=== PATIENT | female | born 1940 | race Caucasian/White ===

== ENCOUNTER 2016-10-02 16:07 | Day surgery (SDCO) | payer MEDICARE, OTHER ==
[2016-10-02 16:51] LABS: BASOPHIL 0.6 % (0-2); EOSINOPHIL 2.7 % (0-7); HCT 38.3 % (37.0-47.0); HGB 13.2 g/dl (12.5-16.0); LYMPHOCYTE 39.1 % (15-48); MCH 31.5 pg (25.0-31.0); MCHC 34.5 g/dL (32.0-36.0); MCV 91.4 fL (78.0-100.0); MPV 10.2 fL (6.0-9.5); NEUTROPHIL 49.6 % (41-80); PLT 304 K/uL (150-400); RBC 4.19 M/uL (4.20-5.40); RDW 12.7 % (11.5-14.0); WBC 6.8 K/uL (4.0-10.5)
[2016-10-02 17:03] LABS: PROTHROMBIN TIME 12.8 SECONDS (11.7-14.0)
[2016-10-02 17:04] LABS: PTT 28.1 SECONDS (23.2-31.4)
[2016-10-02 17:10] LABS: ALBUMIN 4.1 g/dL (3.4-4.8); BILIRUBIN - TOTAL 0.4 mg/dL (0.1-1.0); CREATININE 0.6 mg/dL (0.5-1.0); GLOBULIN (CALCULATION) 2.3 g/dL (2.2-4.2); TOTAL PROTEIN 6.4 g/dL (6.4-8.3)
[2016-10-02 17:12] LABS: CKMB 1.63 ng/mL (0.97-4.94); TROPONIN T < 0.010 ng/mL
[2016-10-02 22:59] LABS: CKMB 1.67 ng/mL (0.97-4.94); TROPONIN T < 0.010 ng/mL
[2016-10-03 05:04] LABS: BASOPHIL 0.4 % (0-2); EOSINOPHIL 2.5 % (0-7); HCT 38.7 % (37.0-47.0); HGB 13.1 g/dl (12.5-16.0); LYMPHOCYTE 39.9 % (15-48); MCHC 33.9 g/dL (32.0-36.0); MCV 91.5 fL (78.0-100.0); MONOCYTE 9.2 % (0-12); MPV 10.4 fL (6.0-9.5); PLT 285 K/uL (150-400); RBC 4.23 M/uL (4.20-5.40); RDW 12.7 % (11.5-14.0); WBC 6.8 K/uL (4.0-10.5)
[2016-10-03 05:25] LABS: CKMB 1.45 ng/mL (0.97-4.94); TROPONIN T < 0.010 ng/mL
[2016-10-03 05:27] LABS: CREATININE 0.6 mg/dL (0.5-1.0); POTASSIUM 3.2 mmol/L (3.5-5.1)
[2016-10-04 05:18] LABS: BASOPHIL 0.3 % (0-2); EOSINOPHIL 3.1 % (0-7); HCT 38.7 % (37.0-47.0); HGB 13.2 g/dl (12.5-16.0); MCH 31.3 pg (25.0-31.0); MCHC 34.1 g/dL (32.0-36.0); MCV 91.7 fL (78.0-100.0); MONOCYTE 9.1 % (0-12); MPV 10.4 fL (6.0-9.5); NEUTROPHIL 42.5 % (41-80); PLT 291 K/uL (150-400); RBC 4.22 M/uL (4.20-5.40); RDW 12.7 % (11.5-14.0); WBC 6.1 K/uL (4.0-10.5)
[2016-10-04 05:38] LABS: CREATININE 0.8 mg/dL (0.5-1.0); POTASSIUM 3.5 mmol/L (3.5-5.1)
[2016-10-04] MEDS ORDERED: TENORMIN50 M1 PO (14:46)
[2016-10-04] MEDS ORDERED: HCTZ12.5 MG PO (14:46)
[2016-10-04] MEDS ORDERED: COZAAR50 MG PO (14:46)
[2016-10-04] MEDS ORDERED: PAXIL10 MG PO (14:46)
[2016-10-04] MEDS ORDERED: COQ1050 MG PO (14:47)
[2016-10-04] MEDS ORDERED: PRAVACHOL20 MG PO (14:47)
[2016-10-04] MEDS ORDERED: SYNTHROID50 MCG PO (14:48)
[2016-10-04] MEDS ORDERED: ZANTAC150 MG PO (14:48)
== END 2016-10-04 11:00 | disposition home or self-care (01) ==
LOC: FER 16:07 → FTCU 17:40
PROVIDERS: Emergency Medicine; ADMIT Internal Medicine
DX: R07.2 Precordial pain (principal); I10 Essential (primary) hypertension; E78.5 Hyperlipidemia, unspecified; E03.9 Hypothyroidism, unspecified; Z90.710 Acquired absence of both cervix and uterus; Z90.49 Acquired absence of other specified parts of digestive tract; Z98.890 Other specified postprocedural states; Z88.0 Allergy status to penicillin; Z88.8 Allergy status to other drugs, medicaments and biological substances; Z87.891 Personal history of nicotine dependence; Z82.49 Family history of ischemic heart disease and other diseases of the circulatory system; Z83.49 Family history of other endocrine, nutritional and metabolic diseases; Z96.49 Presence of other endocrine implants; Z90.721 Acquired absence of ovaries, unilateral; Z79.899 Other long term (current) drug therapy
CPT/HCPCS: 36415; 71010; 73120; 76705; 80048; 80053; 80061; 82550; 82553; 84484; 85025; 85610; 85730; 93005; 94010; G0378; J1885

== ENCOUNTER 2020-10-22 14:29 | Day surgery (SDCO) | payer MEDICARE, OTHER ==
[~2020-10-22 14:29] MED LIST: ATIVAN0.5 MG PO; COQ1050 MG PO; COZAAR50 MG PO; CYMBALTA20 MG PO; HCTZ12.5 MG PO; LEVAQUIN500 MG PO; LEXAPRO 10MG TA10 MG PO; MACROBID100 MG PO; MAG-OXIDE 400M400 MG PO; MEDROL 4MG DOSEP4 MG PO; MICRO-K10 MEQ PO; PAXIL10 MG PO; PEPCID AC20 MG PO; PRAVACHOL20 MG PO; SYNTHROID50 MCG PO; TENORMIN50 M1 PO; ZANTAC150 MG PO; ZPAK PO
[2020-10-22 14:50] LABS: BASOPHIL 0.5 % (0-2); EOSINOPHIL 1.3 % (0-7); HGB 12.6 g/dl (12.5-16.0); LYMPHOCYTE 31.4 % (15-48); MCH 31.9 pg (25.0-31.0); MCHC 33.2 g/dL (32.0-36.0); MCV 96.2 fL (78.0-100.0); MONOCYTE 9.1 % (0-12); MPV 10.2 fL (6.0-9.5); NEUTROPHIL 55.4 % (41-80); NRBC 0; PLT 306 K/uL (150-400); RBC 3.95 M/uL (4.20-5.40); RDW 13.1 % (11.5-14.0); WBC 9.1 K/uL (4.0-10.5)
[2020-10-22 14:55] LABS: INR 1.01 (0.9-1.2); PROTHROMBIN TIME 12.6 SECONDS (11.4-13.6); PTT 24.1 SECONDS (22.2-34.7)
[2020-10-22 15:05] LABS: ALBUMIN 3.4 g/dL (3.4-5.0); BILIRUBIN - TOTAL 0.4 mg/dL (0.2-1.0); BUN/CREAT RATIO (CALC) 44.2 RATIO; CREATININE 0.52 mg/dL (0.51-0.95); GLOBULIN (CALCULATION) 3.1 g/dL; POTASSIUM 4.1 mmol/L (3.5-5.1); TOTAL PROTEIN 6.5 g/dL (6.4-8.2)
[2020-10-22 20:16] LABS: CORONAVIRUS 2019 SARS-COV-2 NEGATIVE (NEGATIVE); INFLUENZA A NAA NEGATIVE (NEGATIVE)
[2020-10-23 05:45] LABS: BASOPHIL 0.5 % (0-2); EOSINOPHIL 2.2 % (0-7); HCT 37.1 % (37.0-47.0); HGB 12.2 g/dl (12.5-16.0); LYMPHOCYTE 40.1 % (15-48); MCH 31.9 pg (25.0-31.0); MCHC 32.9 g/dL (32.0-36.0); MCV 97.1 fL (78.0-100.0); MPV 9.9 fL (6.0-9.5); NEUTROPHIL 45.2 % (41-80); NRBC 0; PLT 292 K/uL (150-400); RBC 3.82 M/uL (4.20-5.40); RDW 13.1 % (11.5-14.0); WBC 7.6 K/uL (4.0-10.5)
[2020-10-23 06:11] LABS: BUN/CREAT RATIO (CALC) 34.6 RATIO; CREATININE 0.52 mg/dL (0.51-0.95); POTASSIUM 3.7 mmol/L (3.5-5.1)
[2020-10-23] MEDS ORDERED: COZAAR100 MG PO ×2 (07:42→10:51)
[2020-10-23] MEDS ORDERED: NORVASC5 MG PO (07:43)
[2020-10-23] MEDS ORDERED: TOPROL XL 25MG25 MG PO (07:44)
[2020-10-23] MEDS ORDERED: EFFEXOR XR37.5 MG PO (07:45)
[2020-10-23] MEDS ORDERED: TOPROL XL 50 MG50 MG PO ×2 (10:51→10:52)
[2020-10-23] MEDS ORDERED: NITROQUIK SL0.4 MG SL ×2 (10:51→10:52)
[2020-10-23] MEDS ORDERED: ASPIRIN EC81 MG PO (11:02)
[2020-10-23] MEDS ORDERED: LOVAZA1 GM PO (11:04)
== END 2020-10-23 12:46 | disposition home or self-care (01) ==
LOC: FER 14:29 → FMS 18:54
PROVIDERS: Emergency Medicine; Nurse Practitioner; ADMIT Internal Medicine
DX: R07.9 Chest pain, unspecified (principal); I10 Essential (primary) hypertension; K21.9 Gastro-esophageal reflux disease without esophagitis; E78.5 Hyperlipidemia, unspecified; F32.9 Major depressive disorder, single episode, unspecified; Z79.82 Long term (current) use of aspirin; Z82.49 Family history of ischemic heart disease and other diseases of the circulatory system; Z87.891 Personal history of nicotine dependence; Z88.0 Allergy status to penicillin; Z88.2 Allergy status to sulfonamides; Z20.822 Contact with and (suspected) exposure to COVID-19
CPT/HCPCS: 36415; 71045; 80048; 80053; 80061; 83735; 84443; 84484; 85025; 85610; 85730; 93005; G0378; J1650; U0002

== ENCOUNTER 2021-03-18 10:06 | Emergency (ER) | payer MEDICARE, OTHER ==
[~2021-03-18 10:06] MED LIST changes: +ASPIRIN EC81 MG PO; +COZAAR100 MG PO; +EFFEXOR XR37.5 MG PO; +LOVAZA1 GM PO; +NITROQUIK SL0.4 MG SL; +NORVASC5 MG PO; +TOPROL XL 25MG25 MG PO; +TOPROL XL 50 MG50 MG PO
[2021-03-18 13:06] LABS: BILIRUBIN NEGATIVE (NEGATIVE); BLOOD NEGATIVE Ery/uL (NEGATIVE); CLARITY CLEAR (CLEAR); COLOR YELLOW (YELLOW); GLUCOSE (U) NORMAL (NORMAL); LEUKOCYTES TRACE Leu/uL (NEGATIVE); NITRITE NEGATIVE (NEGATIVE); PROTEIN NEGATIVE (NEGATIVE); UROBILINOGEN 0.2 mg/dL (0.2-1.0); pH 7.5 (5.0-9.0)
[2021-03-18 13:07] LABS: BASOPHIL 1.2 % (0-2); EOSINOPHIL 0.6 % (0-7); HCT 43.1 % (37.0-47.0); HGB 14.3 g/dl (12.5-16.0); LYMPHOCYTE 21.4 % (15-48); MCH 31.3 pg (25.0-31.0); MCHC 33.2 g/dL (32.0-36.0); MCV 94.3 fL (78.0-100.0); MONOCYTE 8.4 % (0-12); MPV 8.8 fL (6.0-9.5); NEUTROPHIL 62.2 % (41-80); NRBC 0; PLT 370 K/uL (150-400); RBC 4.57 M/uL (4.20-5.40); RDW 12.6 % (11.5-14.0)
[2021-03-18 13:09] LABS: WBC 12.5 K/uL (4.0-10.5)
[2021-03-18 13:14] LABS: BACTERIA 4+
[2021-03-18 13:20] LABS: PROTHROMBIN TIME 12.6 SECONDS (11.8-13.4)
[2021-03-18 13:21] LABS: PTT 26.8 SECONDS (24.4-34.7)
[2021-03-18 13:51] LABS: ALBUMIN 3.3 g/dL (3.4-5.0); ALKALINE PHOSHATASE 158 U/L (46-116); ALT 28 U/L (14-59); AST 20 U/L (15-37); BILIRUBIN - TOTAL 0.4 mg/dL (0.2-1.0); BUN 8 mg/dL (7-18); BUN/CREAT RATIO (CALC) 17.8 RATIO; CHLORIDE 97 mmol/L (98-107); CO2 (BICARBONATE) 31 mmol/L (21-32); CREATININE 0.45 mg/dL (0.51-0.95); GLOBULIN (CALCULATION) 3.9 g/dL; GLUCOSE 86 mg/dL (74-106); LIPASE 133 U/L (73-393); MAGNESIUM 1.9 mg/dL (1.8-2.4); POTASSIUM 3.3 mmol/L (3.5-5.1); TOTAL PROTEIN 7.2 g/dL (6.4-8.2)
[2021-03-18 13:53] LABS: C-REACTIVE PROTEIN <0.20 mg/dL (<=0.90)
[2021-03-18] MEDS ORDERED: ONDANSETRON ODT4 MG PO (17:58)
[2021-03-18] MEDS ORDERED: CIPRO500 M1 PO (17:58)
== END 2021-03-18 18:40 | disposition home or self-care (01) ==
LOC: FER 10:06
PROVIDERS: Emergency Medicine
DX: N39.0 Urinary tract infection, site not specified (principal); Z90.49 Acquired absence of other specified parts of digestive tract; R42 Dizziness and giddiness; Z86.16 Personal history of COVID-19
CPT/HCPCS: 36415; 80053; 81001; 82728; 83605; 83690; 83735; 84145; 84484; 85025; 85610; 85730; 86140; 93005; J1956; J7030

== ENCOUNTER 2021-05-26 09:18 | Emergency (ER) | payer MEDICARE, OTHER ==
[~2021-05-26 09:18] MED LIST changes: +CIPRO500 M1 PO; +ONDANSETRON ODT4 MG PO
[2021-05-26 09:39] LABS: BASOPHIL 0.8 % (0-2); EOSINOPHIL 1.4 % (0-7); HCT 42.3 % (37.0-47.0); HGB 13.9 g/dl (12.5-16.0); LYMPHOCYTE 35.2 % (15-48); MCH 31.2 pg (25.0-31.0); MCHC 32.9 g/dL (32.0-36.0); MCV 94.8 fL (78.0-100.0); MONOCYTE 10.1 % (0-12); MPV 9.5 fL (6.0-9.5); NEUTROPHIL 50.2 % (41-80); NRBC 0; PLT 332 K/uL (150-400); RBC 4.46 M/uL (4.20-5.40); RDW 12.7 % (11.5-14.0); WBC 6.5 K/uL (4.0-10.5)
[2021-05-26 10:01] LABS: BILIRUBIN NEGATIVE (NEGATIVE); BLOOD NEGATIVE Ery/uL (NEGATIVE); CLARITY CLEAR (CLEAR); COLOR YELLOW (YELLOW); GLUCOSE (U) NORMAL (NORMAL); LEUKOCYTES 1+ Leu/uL (NEGATIVE); NITRITE NEGATIVE (NEGATIVE); PROTEIN NEGATIVE (NEGATIVE); SPECIFIC GRAVITY 1.015 (1.001-1.030); UROBILINOGEN 0.2 mg/dL (0.2-1.0)
[2021-05-26 10:11] LABS: BACTERIA TRACE
[2021-05-26 10:18] LABS: ALBUMIN 3.5 g/dL (3.4-5.0); BILIRUBIN - TOTAL 0.3 mg/dL (0.2-1.0); BUN/CREAT RATIO (CALC) 28.9 RATIO; CREATININE 0.45 mg/dL (0.51-0.95); GLOBULIN (CALCULATION) 3.7 g/dL; POTASSIUM 3.5 mmol/L (3.5-5.1); TOTAL PROTEIN 7.2 g/dL (6.4-8.2)
[2021-05-26] MEDS ORDERED: ONDANSETRON ODT4 MG PO (11:04)
[2021-05-26] MEDS ORDERED: ANTIVERT25 MG PO (11:04)
== END 2021-05-26 11:23 | disposition home or self-care (01) ==
LOC: FER 09:18
PROVIDERS: Internal Medicine
DX: I10 Essential (primary) hypertension (principal); J45.909 Unspecified asthma, uncomplicated; Z88.0 Allergy status to penicillin
CPT/HCPCS: 36415; 70450; 71045; 80053; 81001; 84145; 84443; 84484; 85025; 93005

== ENCOUNTER 2021-10-18 04:41 | Day surgery (SDCO) | payer MEDICARE, OTHER ==
[~2021-10-18] VITALS: Ht 165.1 cm; Wt 61.9 kg
[~2021-10-18 04:41] MED LIST changes: +ANTIVERT25 MG PO
[2021-10-18 05:13] LABS: BASOPHIL 0.9 % (0-2); EOSINOPHIL 0.2 % (0-7); HGB 14.4 g/dl (12.5-16.0); LYMPHOCYTE 12.7 % (15-48); MCH 31.9 pg (25.0-31.0); MCHC 33.5 g/dL (32.0-36.0); MCV 95.1 fL (78.0-100.0); MONOCYTE 13.9 % (0-12); MPV 9.5 fL (6.0-9.5); NEUTROPHIL 67.2 % (41-80); NRBC 0; PLT 311 K/uL (150-400); RBC 4.52 M/uL (4.20-5.40); RDW 13.4 % (11.5-14.0); WBC 9.1 K/uL (4.0-10.5)
[2021-10-18 05:29] LABS: ALBUMIN 3.8 g/dL (3.4-5.0); BILIRUBIN - TOTAL 0.3 mg/dL (0.2-1.0); BUN/CREAT RATIO (CALC) 22.4 RATIO; CREATININE 0.49 mg/dL (0.51-0.95); GLOBULIN (CALCULATION) 3.7 g/dL; POTASSIUM 3.3 mmol/L (3.5-5.1); TOTAL PROTEIN 7.5 g/dL (6.4-8.2)
[2021-10-18 05:34] LABS: CORONAVIRUS 2019 SARS-COV-2 NEGATIVE (NEGATIVE); INFLUENZA A NAA POSITIVE (NEGATIVE)
[2021-10-18 05:34] LABS: LACTIC ACID 1.8 mmol/L (0.4-1.9)
[2021-10-18 05:48] LABS: BILIRUBIN NEGATIVE (NEGATIVE); BLOOD NEGATIVE Ery/uL (NEGATIVE); CLARITY CLEAR (CLEAR); COLOR YELLOW (YELLOW); GLUCOSE (U) NORMAL (NORMAL); LEUKOCYTES NEGATIVE Leu/uL (NEGATIVE); NITRITE NEGATIVE (NEGATIVE); PROTEIN NEGATIVE (NEGATIVE); SPECIFIC GRAVITY 1.025 (1.001-1.030); UROBILINOGEN 0.2 mg/dL (0.2-1.0); pH 6.5 (5.0-9.0)
[2021-10-18] MEDS ORDERED: NORVASC5 MG PO (09:06)
[2021-10-19 06:18] LABS: BASOPHIL 1.2 % (0-2); EOSINOPHIL 0.2 % (0-7); HCT 35.8 % (37.0-47.0); HGB 11.7 g/dl (12.5-16.0); LYMPHOCYTE 35.5 % (15-48); MCH 31.5 pg (25.0-31.0); MCHC 32.7 g/dL (32.0-36.0); MCV 96.5 fL (78.0-100.0); MONOCYTE 16.9 % (0-12); MPV 9.8 fL (6.0-9.5); NRBC 0; PLT 258 K/uL (150-400); RBC 3.71 M/uL (4.20-5.40); RDW 13.6 % (11.5-14.0); WBC 4.9 K/uL (4.0-10.5)
[2021-10-19 06:55] LABS: BUN/CREAT RATIO (CALC) 17.8 RATIO; CREATININE 0.45 mg/dL (0.51-0.95); POTASSIUM 3.7 mmol/L (3.5-5.1)
[2021-10-19] MEDS ORDERED: TAMIFLU 75MG CA75 MG PO (09:14)
--- NOTE | 2021-10-19 10:58 | NUR ---
10/19/21 Ms. Bravo lives at home. Her granddaughter and 2 great grandchildren are living in the upstairs of the home. Ms. Bravo was independent in the home and community prior to admission. She does npt need home 02 per Erendira MS RN. Ms. Bravo is concerned re: returning home because of having the flu and the children are also ill. Recommendations were made for them to clean the home and maintain distancing.
== END 2021-10-19 12:21 | disposition home or self-care (01) ==
LOC: FER 04:41 → FMS 07:36
PROVIDERS: Emergency Medicine; Nurse Practitioner Acute Care; ADMIT Family Medicine
DX: J10.1 Influenza due to other identified influenza virus with other respiratory manifestations (principal); J96.91 Respiratory failure, unspecified with hypoxia; I10 Essential (primary) hypertension; R91.1 Solitary pulmonary nodule; E46 Unspecified protein-calorie malnutrition; E78.5 Hyperlipidemia, unspecified; K21.9 Gastro-esophageal reflux disease without esophagitis; F32.A Depression, unspecified; E89.0 Postprocedural hypothyroidism; Z87.891 Personal history of nicotine dependence; Z79.899 Other long term (current) drug therapy; Z88.0 Allergy status to penicillin; Z88.5 Allergy status to narcotic agent; Z20.822 Contact with and (suspected) exposure to COVID-19
CPT/HCPCS: 36415; 36600; 71275; 80048; 80053; 81003; 82803; 83605; 83690; 83880; 84145; 84484; 85025; 87040; 94010; 94640; 94762; G0378; J1650; J1885; J2405; J3490; J7030; Q9967; U0002